=== PATIENT | male | born 1985 | race Caucasian/White ===

== ENCOUNTER 2017-03-27 18:25 | Emergency (ER) | payer MEDICAID ==
[~2017-03-27] VITALS: Ht 177.8 cm; Wt 83.5 kg
[2017-03-27 18:33] VITALS: BP 137/74
== END 2017-03-27 19:17 | disposition home or self-care (01) ==
LOC: ER 18:28
DX: F41.9 Anxiety disorder, unspecified (principal); G47.00 Insomnia, unspecified; F32.9 Major depressive disorder, single episode, unspecified; F42.8 Other obsessive-compulsive disorder; Z88.8 Allergy status to other drugs, medicaments and biological substances
CPT/HCPCS: 99284; A4606; Z7610

== ENCOUNTER 2017-06-15 22:26 | Emergency (ER) | payer MEDICAID ==
[~2017-06-15] VITALS: Ht 193 cm; Wt 83.5 kg
[2017-06-15 22:33] VITALS: BP 137/82
== END 2017-06-15 23:38 | disposition home or self-care (01) ==
LOC: ER 22:26
DX: S93.692A Other sprain of left foot, initial encounter (principal); Z88.8 Allergy status to other drugs, medicaments and biological substances; X50.1XXA Overexertion from prolonged static or awkward postures, initial encounter; Y93.89 Activity, other specified; Y92.89 Other specified places as the place of occurrence of the external cause; Y99.8 Other external cause status
CPT/HCPCS: 73630-TC; A4606; Z7610